=== PATIENT | male | born 1970 | race Caucasian/White ===

== ENCOUNTER 2023-07-02 19:58 | Emergency (ER) | payer OTHER ==
[2023-07-02 20:28] VITALS: BP 135/84; PULSE 90; RESP 16; TEMP 97.8; BMI 31.1
== END 2023-07-02 22:11 | disposition home or self-care (01) ==
LOC: FER 19:58
DX: M54.2 Cervicalgia (principal); R20.2 Paresthesia of skin; M25.512 Pain in left shoulder
CPT/HCPCS: 72125-TC; 99284-25